=== PATIENT | female | born 1945 | race Caucasian/White ===

== ENCOUNTER 2019-10-13 10:02 | Inpatient (IN) ==
[2019-10-13] MEDS ORDERED: METHOCARBAMOL 1,000 MG/10 ML VIAL IV ONE ×2 (10:26→17:54)
--- NOTE | 2019-10-13 10:35 | Emergency Department Note ---
Fall HPI General Chief Complaint: Fall Stated Complaint: fall Time Seen by Provider: 10/13/19 10:04 Mode of arrival: ambulatory Limitations: physical limitation History of Present Illness HPI Narrative: Narrative: This pleasant 74-year-old female was transferred by EMS after she was unable to get up after a fall this morning at around 9:30 AM. Her [id number], Ching and was in the home at the time and did witness this. Neit her the [id number] nor the patient believe that she hit her head or had any loss of consciousness. Fall was caused by a dog that went by and bumped against her, and with some slippers on a hardwood floor slipped and she ended up going down onto her hips. Her back was against some cupboards. She had immediate pain that was in the low midline area. Her pain was 10 out of 10. EMS vitals were 130/80 and pulse of 61. She has no prior history of compression fractures. Pain has been stabbing in nature with spasm-like muscles in the low back area. Is made worse by movement or just on its own. Related Data Home Medications Medication Instructions Recorded Confirmed acetaminophen [Tylenol Extra 500 mg PO TIDP PRN 10/13/19 10/13/19 Strength] furosemide [Lasix] 80 mg PO DAILY 10/13/19 10/13/19 naproxen sodium [Aleve] 220 mg PO Q8H PRN 10/13/19 10/13/19 pentoxifylline 400 mg PO TID 10/13/19 10/13/19 potassium chloride 20 meq PO DAILY 10/13/19 10/13/19 Allergies Allergy/AdvReac Type Severity Reaction Status Date / Time Sulfa (Sulfonamide Allergy Severe Hives Verified 10/13/19 10:08 Antibiotics) Review of Systems ROS ROS Narrative: Narrative: No fevers chills sweats except with the pain this morning. No blurry vision or double vision that is new. She has macular degeneration No chest pain No cough or shortness of breath. Her inhalers were stopped not long ago due to ruling out asthma. She has never been a smoker. No history of COPD. 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 No abdominal pain, nausea, vomiting, diarrhea, constipation, hematochezia No dysuria No headaches or dizziness. Has had sleep study because of insomnia; no GRACE found. No anxiety or depression. [facility] Narrative Patient History Narrative: Narrative: Medical/Surgical/Family History All Active Problems (Updated 10/13/19 @ 17:29 by Farzad Hawkins DO) Fall from slip, trip, or stumble (Acute) Closed compression fracture of lumbar vertebra (Acute) Lumbar strain (Acute) Lives alone (Acute) Chronic insomnia (Chronic) History of appendectomy (Acute) Peripheral arterial disease (Chronic) Aortic aneurysm (Acute) Fluid retention (Chronic) Paralysis, diaphragm (Chronic) Macular degeneration (Chronic) Medical History (Updated 10/13/19 @ 17:29 by Farzad Hawkins DO) Aortic aneurysm (Acute) Patient uncertain if his thoracic or abdominal (10/13/2019) Chronic insomnia (Chronic) Fluid retention (Chronic) On chronic furosemide 80 mg plus potassium (10/13/19) Macular degeneration (Chronic) Paralysis, diaphragm (Chronic) Right side Peripheral arterial disease (Chronic) No stents yet; on pentoxifylline, recently increased to 3 times daily (10/13/2019). Managed by Dr. Winkler, estimator and drafter supervisor, [facility]. Surgical History (Updated 10/13/19 @ 10:31 by Farzad Hawkins DO) History of appendectomy (Acute) History of bilateral cataract extraction (Acute) History of total replacement of both hip joints (Acute) Family History (Updated 10/13/19 @ 10:32 by Farzad Hawkins DO) Heart disease Father Mother Myocardial infarction Father Social History Smoking Status: Never smoker Alcohol Intake Frequency: a few times a month Substance Use: does not use Exam Narrative Narrative: Narrative: General Limitations: physical limitation General appearance: alert, grimacing (Intermittently with some spasms of pain.) and nontoxic Head Head: atraumatic and normocephalic Eye Eye: Present normal appearance, PERRL and EOMI ENT ENT: Present normal oropharynx and mucous membranes moist Neck Neck: Present trachea midline; Absent lymphadenopathy and thyromegaly Chest Chest: Present symmetric chest wall rise Respiratory Respiratory: Present normal lung sounds bilaterally (Except for very fine trace crackles in the left base.); Absent respiratory distress, rales/crackles, wheezes, stridor, accessory muscle use and prolonged expiratory phase Cardiovascular Cardiovascular: Present regular rate, normal rhythm and other (Occasional PVCs or other early beats with irregularity.); Absent systolic murmur and diastolic murmur Adbominal Abdominal: Present soft; Absent distention, tenderness, guarding, rebound, rigidity, organomegaly and mass Extremities Extremities: Absent pedal edema, pretibial edema, calf tenderness and cyanosis Back Back: Present spinous process tenderness (Approximately L5 spinous process seems to be fairly tender to her. None on the sides of this level. No pain at the sacroiliac joints or sacrum specifically.); Absent CVA tenderness (R) and CVA tenderness (L) Neurological Neurological: Present alert and oriented X3 Psychiatric Psychiatric: Present normal affect, polite and pleasant; Absent depressed, agitated, anxious and poor eye contact Skin Skin: Present warm and dry; Absent cyanosis and pallor Course Vital Signs Vital signs: Vital Signs Temperature 97.2 F 10/13/19 10:03 Pulse Rate 56 L 10/13/19 10:03 Respiratory Rate 16 10/13/19 10:03 Blood Pressure 169/118 10/13/19 10:03 Pulse Oximetry (%) 93 10/13/19 10:03 Temperature 97.2 F 10/13/19 10:03 Pulse Rate 80 10/13/19 16:19 Respiratory Rate 16 10/13/19 10:03 Blood Pressure 138/77 10/13/19 16:19 Pulse Oximetry (%) 96 10/13/19 16:19 [facility] Narrative Medical decision making narrative: Narrative: 10:06 AM - interviewed and examined. Significant pain at about L5 after a fall; no loss of consciousness. Is on pentoxifylline but no other blood thinners. Aspirin was stopped 2 weeks ago due to significant bruising.. Has a history of hip replacement. History of several medical problems. We will do x-rays. We will put in an IV to be able to do methocarbamol IV. 12:20 PM - I did not see any abnormalities in the hips. There is significant air in multiple loops but no overly dilated. Lumbar x-ray with suggestion of posterior decrease in the height at L5 and fears to have compression of L1. 12:40 PM - I spoke with the radiologist who points out new compression fracture since a comparison CT of several years ago and L1 and may be slight and L2 but he does not feel that this is likely an L5. 1:01 PM - spoke with patient who confirms the pain is still at the lower aspect rather than L1. Because the pain is quite severe and incredible even inhibiting her ability to get up to go to the bathroom but some lessened with the pain medicine, there is a question if she could even be able to return home. She does not have anybody to stay with her. Because of the severity of the pain will go ahead with a CT scan. I spoke with career resource technician who confirms a CT without contrast should be adequate. 1:56 PM - if she does not move she does not have much pain but if she moves she has quite a bit of pain. Additional pain medication given and we will try to ambulate her. With second dose of pain medication she still is completely unable to move around and unable to care for herself. I spoke with the hospitalist, Dr. Corbin Kinsey, who will see patient and admit for management short-term and look for long-term or intermediate options. Discharge Plan Patient/Caregiver Discharge Instructions Pt seen by CABLE WAY OPERATOR/PA only: No Clinical Impression: Fall from slip, trip, or stumble, Closed compression fracture of lumbar vertebra, Lumbar strain, Lives alone Patient Disposition: Xfer As Outpt/Obs ([facility]) Follow up with: Ching Garza ARNP [Primary Care Provider] - Prescriptions: No Action furosemide [Lasix] 40 mg Tablet 80 mg PO DAILY RF: 0 pentoxifylline 400 mg Tablet Extended Release 400 mg PO TID RF: 0 potassium chloride 20 mEq Tablet Extended Release 20 meq PO DAILY RF: 0 acetaminophen [Tylenol Extra Strength] 500 mg Tablet 500 mg PO TIDP PRN (Reason: Pain) RF: 0 naproxen sodium [Aleve] 220 mg Capsule 220 mg PO Q8H PRN (Reason: Pain) RF: 0
[2019-10-13] MEDS ORDERED: ONDANSETRON 4 MG/2 ML VIAL IV ONE (11:54)
[2019-10-13] MEDS: HYDROmorphone 0.5 MG/0.5 ML SYRINGE IV PRN ×3 (12:07→16:26)
--- NOTE | 2019-10-13 14:45 | Cat Scan Report ---
CLINICAL INFORMATION: , Trauma COMPARISON: Plain films 10/13/2019 TECHNIQUE: 0.625 mm helical slices were obtained from the mid T12 through mid S2 vertebral bodies. Following reconstruction, 2.5 mm coronal, sagittal, and axial reformations (angle to the disc spaces) were processed. Exam was reviewed at bone and soft tissue windows.The exam was performed using radiation dose optimization techniques including, but not limited to, automated exposure control, adjustment of the mA and/or kV according to patient size and use of iterative reconstruction technique. FINDINGS: Sagittal and coronal reformatted images show the lumbar spine is anatomically aligned. A moderately comminuted acute compression fracture of the superior one third of the L1 vertebral bodies appreciated. Posterior fragment is displaced 4 mm resulting in slight impingement of the anterior thecal sac. No other fractures identified. Soft tissues are significant for multiple small stones in the gallbladder. No other soft tissue abnormality. At T12-L1, there is minimal broad disc protrusion left-sided asymmetry. At L1-2, moderate broad disc protrusion mildly impinges the right anterior thecal sac and slightly narrows the right lateral recess. At L2-3, mild broad disc protrusion with right-sided asymmetry is appreciated. At L3-4, minimal broad disc protrusion is appreciated. At L4-5, moderate broad disc protrusion left-sided asymmetry and facet arthropathy result in mild central canal and mild left lateral recess narrowing At L5-S1, mild broad disc protrusion mildly impinges the thecal sac. IMPRESSION: 1. Mild acute L1 compression fracture involving the superior endplate with approximately 10% loss of vertebral height. There is 4 mm displacement posterior fragment into the thecal sac 2. Mild degenerative change - as described 3. Cholelithiasis Interpreted and Authenticated by: Won Lopez 10/13/19
--- NOTE | 2019-10-13 15:17 | XRay Report ---
CLINICAL INFORMATION: Fall/ Low back pain COMPARISON: None. FINDINGS: Mild compression fracture of the superior L1 endplate with approximately 10% loss of vertebral height appreciated. There is mild biconcavity of the lumbar endplates suggesting osteopenia. The lumbar spine is normal in curvature and alignment. Mild L5-S1 degenerative disc disease noted. No soft tissue normality. IMPRESSION: Mild acute fracture of the superior L1 endplate 10% loss of vertebral height Mild L5-S1 degenerative disc facet disease Interpreted and Authenticated by: Won Lopez 10/13/19
--- NOTE | 2019-10-13 15:19 | XRay Report ---
CLINICAL INFORMATION: Fall/ Low back pain COMPARISON: 03/20/2013 FINDINGS: Bilateral hip prostheses are in stable position. The left hip prostheses is anatomically aligned. The acetabular component of the right hip prostheses shows chest lateral canting. There are three additional screws through the right supra-acetabular regions.. No acute fracture appreciated. SI joints show only minimal degenerative change. Soft tissues normal. IMPRESSION: No fracture or other acute posttraumatic change. Interpreted and Authenticated by: Won Lopez 10/13/19
--- NOTE | 2019-10-13 17:12 | Internal Med History&Physical ---
HPI History of Present Illness Patient information: Note initiated : 10/13/19 at 5:05 pm Service Date, if different from initiated Date: [] Patient: Iza Chapa a 74 y/o F admitted on for fall. Chief Complaint: [] History of present illness: Ms. Chapa is a 74 year old F Who presents to the ED with low back pain after fall at home. Patient lives alone but her sister was visiting and while her sister was visiting her dog bumped her and she fell straight to the floor on her buttocks resulting in low back pain. Did not hit her head and no loss of consciousness. She been otherwise healthy and no recent issues. In the ED she was evaluated and found to have a acute L1 compression fracture. Because of the acute pain she is unable to ambulate and provide care for herself at home by herself, thus admission was requested. She denies any numbness tingling in her legs. She denies any bowel or bladder incontinence. Pain is localized to the low back and does not radiate. Review of Systems: Pertinent positives as above. Denies headach e/fever/chills/nausea/vomiting/chest or abdominal pain/cough/dyspnea/diarrhea. Remaining 10 point review of system reviewed negative PFSH PFSH All Active Problems (Updated 10/13/19 @ 10:37 by Farzad Hawkins DO) Chronic insomnia (Chronic) History of appendectomy (Acute) Peripheral arterial disease (Chronic) Aortic aneurysm (Acute) Fluid retention (Chronic) Paralysis, diaphragm (Chronic) Macular degeneration (Chronic) Medical History (Updated 10/13/19 @ 10:37 by Farzad Hawkins DO) Aortic aneurysm (Acute) Patient uncertain if his thoracic or abdominal (10/13/2019) Chronic insomnia (Chronic) Fluid retention (Chronic) On chronic furosemide 80 mg plus potassium (10/13/19) Macular degeneration (Chronic) Paralysis, diaphragm (Chronic) Right side Peripheral arterial disease (Chronic) No stents yet; on pentoxifylline, recently increased to 3 times daily (10/13/2019). Managed by Dr. Winkler, electrical journeyman, [facility]. Surgical History (Updated 10/13/19 @ 10:31 by Farzad Hawkins DO) History of appendectomy (Acute) History of bilateral cataract extraction (Acute) History of total replacement of both hip joints (Acute) Family History (Updated 10/13/19 @ 10:32 by Farzad Hawkins DO) Father Heart disease Myocardial infarction Mother Heart disease Social History smoking status: Never smoker alcohol intake frequency: a few times a month substance use type: does not use MEDS/ALLERGIES Home Medications and Allergies Home Medications Medication Instructions Recorded Confirmed Type furosemide [Lasix] 40 mg PO BID 10/13/19 10/13/19 History pentoxifylline 400 mg PO TID 10/13/19 10/13/19 History potassium chloride 20 meq PO DAILY 10/13/19 10/13/19 History Allergies Allergy/AdvReac Type Severity Reaction Status Date / Time Sulfa (Sulfonamide Allergy Severe Hives Verified 10/13/19 10:08 Antibiotics) EXAM Constitutional Vitals: Temp Pulse Resp BP Pulse Ox 97.2 F 80 16 138/77 96 10/13/19 10:03 10/13/19 16:19 10/13/19 10:03 10/13/19 16:19 10/13/19 16:19 Exam: General: Alert, Awake, No acute Distress Eyes/N/T: EOMI, PERRL, Head/Neck: neck supple, normocephalic atraumatic CV: RRR, No murmurs, normal s1/s2 Pulm: Clear b/l, no wheezing/rhonchi/rales Abd: soft, nontender, +BS x4 Ext: no clubbing/cyanosis/edema Neuro: Alert, no focal deficits, moves all extremities, CN 2-12 grossly intact, sensations intact b/l upper/lower Skin: warm/dry A/P Narrative A/P Narrative: A: *Acute L1 Compression Fx w/Intractable Pain and mild impingement on thecal sac, no neurological symptoms: *Debility: 2/2 above *h/o Asthma: *GRACE: Currently being evaluated for CPAP *PVD: on Pentoxifylline and ASA *h/o of PAF, being treated with ASA *Glaucoma: * P: -NSAIDS, robaxin, prn norco -lidoderm patch -LSO brace -pt/ot -home med update -CM for placement needs - -ppx: lovenox full code Time Spent With Patient Time: Total time spent is greater than 50% in coordination of care (as documented) at patient's floor/unit and/or counseling patient:
[2019-10-13] MEDS ORDERED: MAGNESIUM SULFATE 2 GM/50 ML BAG IV PRN (17:54)
[2019-10-13] MEDS ORDERED: LACTULOSE 20 GM/30 ML ORAL.SOL PO PRN (17:54)
[2019-10-13] MEDS ORDERED: ACETAMINOPHEN 325 MG TABLET PO PRN (17:54)
[2019-10-13] MEDS ORDERED: IPRATROPIUM/ALBUTEROL 3 ML AMPUL.NEB NEB PRN (17:54)
[2019-10-13] MEDS ORDERED: POTASSIUM CHLORIDE 20 MEQ TABLET PO PRN ×2 (17:54)
[2019-10-13] MEDS ORDERED: 0.9 % SODIUM CHLORIDE 1,000 ML IV SCH (17:54)
[2019-10-13] MEDS ORDERED: POTASSIUM CHLORIDE 40 MEQ in DEXTROSE 5% IN WATER 500 ML IV PRN (17:54)
[2019-10-13] MEDS ORDERED: SENNOSIDES 1 TABLET PO PRN (17:54)
[2019-10-13] MEDS ORDERED: POLYETHYLENE GLYCOL 3350 17 GM PACKET PO PRN (17:54)
[2019-10-13] MEDS: KETOROLAC 15 MG/ML VIAL IV SCH (18:49)
[2019-10-13] MEDS: 0.9 % SODIUM CHLORIDE 10 ML SYRINGE IV SCH (20:59)
[2019-10-13] MEDS: HYDROcodone/APAP 5/325MG TABLET PO PRN (22:01)
[2019-10-13] MEDS: PENTOXIFYLLINE 400 MG TABLET PO SCH (22:01)
[2019-10-13] MEDS: DOCUSATE SODIUM 100 MG CAPSULE PO SCH (22:01)
[2019-10-14] MEDS: HYDROcodone/APAP 5/325MG TABLET PO PRN ×3 (02:30→14:19)
[2019-10-14] MEDS: 0.9 % SODIUM CHLORIDE 10 ML SYRINGE IV SCH ×3 (05:32→20:34)
[2019-10-14] MEDS: KETOROLAC 15 MG/ML VIAL IV SCH ×2 (05:32)
--- NOTE | 2019-10-14 07:48 | Internal Med Progress Note ---
SUBJECTIVE Subjective Patient information: Note initiated : 10/14/19 at 7:46 am Service Date, if different from initiated Date: [] Patient: Iza Chapa a 74 y/o F admitted on 10/13/19 for fall. Chief Complaint: [] Interval history: History of present illness: Ms. Chapa is a 74 year old F Who presents to the ED with low back pain after fall at home. Patient lives alone but her sister was visiting and while her sister was visiting her dog bumped her and she fell straight to the floor on her buttocks resulting in low back pain. Did not hit her head and no loss of consciousness. She been otherwise healthy and no recent issues. In the ED she was evaluated and found to have a acute L1 compression fracture. Because of the acute pain she is unable to ambulate and provide care for herself at home by herself, thus admission was requested. She denies any numbness tingling in her legs. She denies any bowel or bladder incontinence. Pain is localized to the low back and does not radiate. 9/6 Comfortable if he does not move. Lidocaine patch started this morning. Physical therapy to fit patient with LSO brace. No other pains or complaints. Review of Systems: denies headache/fever/chills/nausea/vomiting/chest or abdominal pain/coug h/dyspnea/diarrhea. Otherwise see above. Constitutional Vitals: Vital Signs Temp Pulse Resp BP Pulse Ox 98.1 F 62 16 113/61 96 10/14/19 03:35 10/14/19 03:35 10/14/19 03:35 10/14/19 03:35 10/14/19 03:35 Period Temp Pulse Resp BP Sys/Meza Pulse Ox Last 24 Hr 97.2 F-99.2 F 53-108 15-16 111-169/56-118 84-100 Intake and Output 10/13/19 10/14/19 10/14/19 21:59 05:59 13:59 Intake Total 600 1000 Output Total 800 175 Balance -023 255 7165 Weight 66.678 kg Intake & Output: Intake & Output 10/13/19 10/14/19 10/14/19 21:59 05:59 13:59 Intake Total 600 1000 Output Total 800 175 Balance -816 584 7373 Weight 66.678 kg Intake: IV 1000 Sodium Chloride 0.9% 1,000 ml @ 1000 125 mls/hr IV .Q8H [facility] Rx#: [id number] Oral 600 Output: Void Amount 800 175 Other: Urine Appearance Clear Urine Color Bright Yellow Exam: General: Alert, Awake, No acute Distress Eyes/N/T: EOMI, Head/Neck: neck supple, CV: RRR, No murmurs, Pulm: Clear b/l, no wheezing/rhonchi/rales Abd: soft, nontender, +BS x4 Ext: no clubbing/cyanosis/edema Neuro: Alert, no focal deficits, moves all extremities, Skin: warm/dry OBJ DATA Labs Meds: Medications Acetaminophen (Tylenol) 650 mg PO Q6HP PRN PRN Reason: PAIN/FEVER > 101 Hydrocodone Bitart/Acetaminophen ([place] 5/325mg) 1 tab PO Q4HP PRN PRN Reason: PAIN LEVEL 3-6 Last Admin: 10/14/19 06:39 Dose: 1 tab Documented by: Albuterol/Ipratropium (Duoneb) 3 ml NEB Q4HP PRN PRN Reason: Shortness Of Breath Docusate Sodium (Colace) 100 mg PO BID [facility] Last Admin: 10/13/19 22:01 Dose: 100 mg Documented by: Enoxaparin Sodium (Lovenox) 40 mg SQ DAILY [facility] Furosemide (Lasix) 40 mg PO BID [facility] Potassium Chloride 40 meq/ (Dextrose) 520 mls @ 130 mls/hr IV UD PRN PRN Reason: Potassium < 3 Magnesium Sulfate (Magnesium Sulfate) 2 gm in 50 mls @ 50 mls/hr IV UD PRN PRN Reason: Magnesium </= 1.6 Lactulose (Cephulac) 20 gm PO DAILYP PRN PRN Reason: Constipation Lidocaine (Lidoderm) 1 patch TOPICAL DAILY@1000 [facility] Methocarbamol (Robaxin) 750 mg IV Q6HP PRN PRN Reason: Muscle Spasm Morphine Sulfate (Morphine) 0 mg IV Q3HP PRN PRN Reason: Pain Ondansetron HCl (Zofran) 4 mg IV Q4HP PRN PRN Reason: Nausea And Vomiting Pentoxifylline (Trental) 400 mg PO TID [facility] Last Admin: 10/13/19 22:01 Dose: 400 mg Documented by: Polyethylene Glycol (Miralax) 17 gm PO DAILYP PRN PRN Reason: Constipation Potassium Chloride (Kdur) 20 meq PO QAMCC [facility] Potassium Chloride (Kdur) 40 meq PO UD PRN PRN Reason: Potssium is 3-3.5 Potassium Chloride (Kdur) 40 meq PO UD PRN PRN Reason: Potassium < 3 Senna (Senokot) 2 tab PO DAILYP PRN PRN Reason: Constipation Sodium Chloride (Saline Flush) 10 ml IV Q8 [facility] Last Admin: 10/14/19 05:32 Dose: 10 ml Documented by: A/P Narrative A/P Narrative: A: *Acute L1 Compression Fx w/Intractable Pain and mild impingement on thecal sac, no neurological symptoms: *Debility: 2/2 above *h/o Asthma: *GRACE: Currently being evaluated for CPAP *PVD: on Pentoxifylline and ASA *h/o of PAF, being treated with ASA *Glaucoma: * P: -NSAIDS, robaxin, prn norco -lidoderm patch -LSO brace -pt/ot -home med update -CM for placement to SNF - -ppx: lovenox full code Time Spent With Patient Time: Total time spent is greater than 50% in coordination of care (as documented) at patient's floor/unit and/or counseling patient: QUALITY VTE Deep Vein Thrombosis/Pulmonary Embolism Present on Admission: No
[2019-10-14 08:06] LABS: POC Blood Urea Nitrogen 16 mg/dl (8-23); POC CO2 22 mmol/L (22-30); POC Calcium, Ionized 1.12 mmol/L (1.16-1.32); POC Chloride 102 mmol/L (96-108); POC Creatinine 0.5 mg/dl (0.6-1.1); POC Glucose, Random 78 mg/dL (70-105); POC Potassium 4.3 mmol/L (3.3-5.1); POC Sodium 135 mmol/L (133-145)
[2019-10-14] MEDS: POTASSIUM CHLORIDE 20 MEQ TABLET PO SCH (08:31)
[2019-10-14] MEDS: DOCUSATE SODIUM 100 MG CAPSULE PO SCH ×2 (08:32→20:34)
[2019-10-14] MEDS: PENTOXIFYLLINE 400 MG TABLET PO SCH ×3 (08:32→20:35)
[2019-10-14] MEDS: ENOXAPARIN 40 MG/0.4 ML SYRINGE SQ SCH (08:32)
[2019-10-14] MEDS: LIDOCAINE PATCH TOPICAL SCH (09:21)
[2019-10-14] MEDS: METHOCARBAMOL 1,000 MG/10 ML VIAL IV PRN ×2 (12:27→20:35)
[2019-10-14] MEDS ORDERED: FUROSEMIDE 40 MG TABLET PO SCH (21:00)
[2019-10-15] MEDS: HYDROcodone/APAP 5/325MG TABLET PO PRN ×4 (01:19→21:10)
[2019-10-15] MEDS: METHOCARBAMOL 1,000 MG/10 ML VIAL IV PRN (02:51)
[2019-10-15] MEDS: 0.9 % SODIUM CHLORIDE 10 ML SYRINGE IV SCH ×3 (04:00→21:11)
[2019-10-15] MEDS: ONDANSETRON 4 MG/2 ML VIAL IV PRN ×2 (08:20→19:35)
--- NOTE | 2019-10-15 08:57 | Internal Med Progress Note ---
SUBJECTIVE Subjective Patient information: Note initiated : 10/15/19 at 8:55 am Service Date, if different from initiated Date: [] Patient: Iza Chapa a 74 y/o F admitted on 10/13/19 for fall. Chief Complaint: [] Interval history: History of present illness: Ms. Chapa is a 74 year old F Who presents to the ED with low back pain after fall at home. Patient lives alone but her sister was visiting and while her sister was visiting her dog bumped her and she fell straight to the floor on her buttocks resulting in low back pain. Did not hit her head and no loss of consciousness. She been otherwise healthy and no recent issues. In the ED she was evaluated and found to have a acute L1 compression fracture. Because of the acute pain she is unable to ambulate and provide care for herself at home by herself, thus admission was requested. She denies any numbness tingling in her legs. She denies any bowel or bladder incontinence. Pain is localized to the low back and does not radiate. 10/13 Comfortable if he does not move. Lidocaine patch started this morning. Physical therapy to fit patient with LSO brace. No other pains or complaints. 10/14 Patient states she had a rough night last night because of pain. She was in chair yesterday afternoon feels that bothered her back. She is on muscle relaxers oral narcotics with as needed IV and Lidoderm patch as well as a brace. Did have some nausea morning but no vomiting. Review of Systems: denies headache/fever/chills/nausea/vomiting/chest or abdominal pain/cough/dyspnea/diarrhea. Otherwise see above. Constitutional Vitals: Vital Signs Temp Pulse Resp BP Pulse Ox 98.1 F 73 20 126/70 95 10/15/19 06:53 10/15/19 06:53 10/15/19 06:53 10/15/19 06:53 10/15/19 06:53 Period Temp Pulse Resp BP Sys/Meza Pulse Ox Last 24 Hr 97.7 F-98.8 F 63-75 16-20 121-141/57-95 93-96 Intake and Output 10/14/19 10/15/19 10/15/19 21:59 05:59 13:59 Output Total 375 400 100 Balance -375 -400 -100 Weight 67.358 kg Intake & Output: Intake & Output 10/14/19 10/15/19 10/15/19 21:59 05:59 13:59 Output Total 375 400 100 Balance -375 -400 -100 Weight 67.358 kg Output: Urine Catheter Amount 100 Void Amount 375 300 100 Other: Meal Lunch Percent of Meal Consumed 100% Urine Appearance Clear Urine Color Bright Yellow Exam: General: Alert, Awake, No acute Distress Eyes/N/T: EOMI, Head/Neck: neck supple, CV: RRR, No murmurs, Pulm: Clear b/l, no wheezing/rhonchi/rales Abd: soft, nontender, +BS x4 Ext: no clubbing/cyanosis/edema Neuro: Alert, no focal deficits, moves all extremities, Skin: warm/dry OBJ DATA Labs Labs: Abnormal Lab Results 10/14/19 08:00 POC Hct 33.0 L POC Creatinine 0.5 L POC WB Ioniz Calcium 1.12 L Meds: Medications Acetaminophen (Tylenol) 650 mg PO Q6HP PRN PRN Reason: PAIN/FEVER > 101 Last Admin: 10/15/19 03:05 Dose: 650 mg Documented by: Hydrocodone Bitart/Acetaminophen ([place] 5/325mg) 1 tab PO Q4HP PRN PRN Reason: PAIN LEVEL 3-6 Last Admin: 10/15/19 01:19 Dose: 1 tab Documented by: Albuterol/Ipratropium (Duoneb) 3 ml NEB Q4HP PRN PRN Reason: Shortness Of Breath Docusate Sodium (Colace) 100 mg PO BID [facility] Last Admin: 10/14/19 20:34 Dose: 100 mg Documented by: Enoxaparin Sodium (Lovenox) 40 mg SQ DAILY [facility] Last Admin: 10/14/19 08:32 Dose: 40 mg Documented by: Furosemide (Lasix) 40 mg PO BID [facility] Last Admin: 10/14/19 20:34 Dose: Not Given Documented by: Potassium Chloride 40 meq/ (Dextrose) 520 mls @ 130 mls/hr IV UD PRN PRN Reason: Potassium < 3 Magnesium Sulfate (Magnesium Sulfate) 2 gm in 50 mls @ 50 mls/hr IV UD PRN PRN Reason: Magnesium </= 1.6 Lactulose (Cephulac) 20 gm PO DAILYP PRN PRN Reason: Constipation Lidocaine (Lidoderm) 1 patch TOPICAL DAILY@1000 [facility] Last Admin: 10/14/19 09:21 Dose: 1 patch Documented by: Methocarbamol (Robaxin) 750 mg IV Q6HP PRN PRN Reason: Muscle Spasm Last Admin: 10/15/19 02:51 Dose: 750 mg Documented by: Morphine Sulfate (Morphine) 0 mg IV Q3HP PRN PRN Reason: Pain Last Admin: 10/15/19 08:18 Dose: 3 mg Documented by: Ondansetron HCl (Zofran) 4 mg IV Q4HP PRN PRN Reason: Nausea And Vomiting Last Admin: 10/15/19 08:20 Dose: 4 mg Documented by: Pentoxifylline (Trental) 400 mg PO TID [facility] Last Admin: 10/14/19 20:35 Dose: 400 mg Documented by: Polyethylene Glycol (Miralax) 17 gm PO DAILYP PRN PRN Reason: Constipation Last Admin: 10/14/19 20:33 Dose: 17 gm Documented by: Potassium Chloride (Kdur) 20 meq PO QAMCC [facility] Last Admin: 10/14/19 08:31 Dose: 20 meq Documented by: Potassium Chloride (Kdur) 40 meq PO UD PRN PRN Reason: Potssium is 3-3.5 Potassium Chloride (Kdur) 40 meq PO UD PRN PRN Reason: Potassium < 3 Senna (Senokot) 2 tab PO DAILYP PRN PRN Reason: Constipation Sodium Chloride (Saline Flush) 10 ml IV Q8 [facility] Last Admin: 10/15/19 04:00 Dose: 10 ml Documented by: A/P Narrative A/P Narrative: A: *Acute L1 Compression Fx w/Intractable Pain and mild impingement on thecal sac, no neurological symptoms: *Debility: 2/2 above *h/o Asthma: *GRACE: Currently being evaluated for CPAP *PVD: on Pentoxifylline and ASA *h/o of PAF, being treated with ASA *Glaucoma: * P: -NSAIDS, robaxin, prn norco -lidoderm patch -LSO brace -pt/ot -home med update -CM for placement to SNF - -ppx: lovenox full code Time Spent With Patient Time: Total time spent is greater than 50% in coordination of care (as documented) at patient's floor/unit and/or counseling patient: [facility] VTE Deep Vein Thrombosis/Pulmonary Embolism Present on Admission: No
[2019-10-15] MEDS ORDERED: fentaNYL 12 MCG PATCH TOPICAL SCH (09:45)
[2019-10-15] MEDS: PENTOXIFYLLINE 400 MG TABLET PO SCH ×3 (10:56→21:10)
[2019-10-15] MEDS: DOCUSATE SODIUM 100 MG CAPSULE PO SCH ×2 (10:56→21:10)
[2019-10-15] MEDS: POTASSIUM CHLORIDE 20 MEQ TABLET PO SCH (10:56)
[2019-10-15] MEDS: ENOXAPARIN 40 MG/0.4 ML SYRINGE SQ SCH (10:59)
[2019-10-15] MEDS: LIDOCAINE PATCH TOPICAL SCH (11:06)
--- NOTE | 2019-10-15 15:00 | Discharge Summary ---
Discharge Provider Provider Patient information: Note initiated : 10/15/19 at 2:58 pm Service Date, if different from initiated Date: [] Patient: Iza Chapa 74 y/o F admitted on 10/13/19 for fall. Chief Complaint: [] Date of admission: 10/13/19 17:40 Discharge date: 10/16/19 Primary care physician: Ching Garza Consults: 10/13/19 Consult to Physician [CONS] Stat Comment: Consulting Provider: Corbin Kinsey Reason For Exam: Physician to Consult Discharge Meds Discharge Medications Home Medications acetaminophen [Tylenol Extra Strength] 500 mg PO TIDP PRN 10/13/19 [History Confirmed 10/16/19 Last Taken Unknown] albuterol sulfate 2 puff INHALATION QID PRN 10/13/19 [History Confirmed 10/16/19 Last Taken Unknown] dorzolamide-timolol (PF) 1 drp OPHTHALMIC (EYE) BID 10/13/19 [History Confirmed 10/16/19 Last Taken 10/13/19 1 gtt] furosemide [Lasix] 40 mg PO DAILY 10/13/19 [History Confirmed 10/16/19 Last Taken 10/13/19 40 mg] naproxen sodium [Aleve] 220 mg PO Q8H PRN 10/13/19 [History Confirmed 10/16/19 Last Taken 10/12/19 1 tab] pentoxifylline 400 mg PO TID 10/13/19 [History Confirmed 10/16/19 Last Taken 10/13/19 400 mg] potassium chloride 20 meq PO DAILY 10/13/19 [History Confirmed 10/16/19 Last Taken 10/13/19 20 mEq] docusate sodium 100 mg PO BID #60 cap 10/15/19 [Rx Last Taken Unknown] fentanyl 12 mcg TOPICAL Q72H #4 ea 10/15/19 [Rx Last Taken Unknown] hydrocodone-acetaminophen 1 tab PO Q4HP PRN #30 tab 10/15/19 [Rx Last Taken Unknown] methocarbamol 750 mg PO QID PRN #20 tab 10/15/19 [Rx Last Taken Unknown] COURSE Hospital Course Hospital course: History of present illness: Ms. Chapa is a 74 year old F Who presents to the ED with low back pain after fall at home. Patient lives alone but her sister was visiting and while her sister was visiting her dog bumped her and she fell straight to the floor on her buttocks resulting in low back pain. Did not hit her head and no loss of consciousness. She been otherwise healthy and no recent issues. In the ED she was evaluated and found to have a acute L1 compression fracture. Because of the acute pain she is unable to ambulate and provide care for herself at home by herself, thus admission was requested. She denies any numbness tingling in her legs. She denies any bowel or bladder incontinence. Pain is localized to the low back and does not radiate. 10/13 Comfortable if he does not move. Lidocaine patch started this morning. Physical therapy to fit patient with LSO brace. No other pains or complaints. 10/14 Patient states she had a rough night last night because of pain. She was in chair yesterday afternoon feels that bothered her back. She is on muscle relaxers oral narcotics with as needed IV and Lidoderm patch as well as a brace. Did have some nausea morning but no vomiting. 10/15 Started fentanyl patch yesterday which seems to be helping. Awaiting placement. A: *Acute L1 Compression Fx w/Intractable Pain and mild impingement on thecal sac, no neurological symptoms: *Debility: 2/2 above *h/o Asthma: *GRACE: Currently being evaluated for CPAP *PVD: on Pentoxifylline and ASA *h/o of PAF, being treated with ASA *Glaucoma: * Discharge diagnosis: Trip and fall with L1 compression fracture, debility Secondary discharge diagnosis: Obstructive sleep apnea peripheral vascular disease history of A. fib and glaucoma Time Spent with Patient Time attestation: Total time spent providing and/or coordinating discharge services: Time spent: Greater than 30 minutes EXAM Constitutional Vitals: Temp Pulse Resp BP Pulse Ox 98.4 F 64 16 136/69 91 10/15/19 11:40 10/15/19 11:40 10/15/19 11:40 10/15/19 11:40 10/15/19 11:40 Discharge Plan Patient/Caregiver Discharge Instructions Activity: increase activity as tolerated Diet: Cardiac Activity Restrictions/Additional Instructions: use LSO brace when ambulating. f/u with PT/OT Prescriptions: New hydrocodone-acetaminophen 5-325 mg Tablet 1 tab PO Q4HP PRN (Reason: Pain Level 3-6) Qty: 30 RF: 0 methocarbamol 750 mg Tablet 750 mg PO QID PRN (Reason: spasm) Qty: 20 RF: 0 docusate sodium 100 mg Capsule 100 mg PO BID Qty: 60 RF: 0 fentanyl 12 mcg/hr Patch 72 Hour 12 mcg topical Q72H Qty: 4 RF: 0 Continued furosemide [Lasix] 40 mg Tablet 40 mg PO DAILY RF: 0 pentoxifylline 400 mg Tablet Extended Release 400 mg PO TID RF: 0 potassium chloride 20 mEq Tablet Extended Release 20 meq PO DAILY RF: 0 acetaminophen [Tylenol Extra Strength] 500 mg Tablet 500 mg PO TIDP PRN (Reason: Pain) RF: 0 naproxen sodium [Aleve] 220 mg Capsule 220 mg PO Q8H PRN (Reason: Pain) RF: 0 albuterol sulfate 90 mcg/actuation Hfa Aerosol Inhaler 2 puff INHALATION QID PRN (Reason: Shortness Of Breath) RF: 0 dorzolamide-timolol (PF) 2-0.5 % Drops 1 drp OPHTHALMIC (EYE) BID RF: 0 Follow Up Plan Follow up with: Ching Garza ARNP [Primary Care Provider] - Patient Disposition: Xfer SNF Rehab Potential: Fair I certify that the patient requires SNF services: Yes Overall status at discharge: patient is not back to baseline Discharge Orders: Discharge Order (Routine); Ordered 10/16/19 Ordered By: Corbin Kinsey REPLACED BY [facility] VTE Deep Vein Thrombosis/Pulmonary Embolism Present on Admission: No
[2019-10-15] MEDS: METHOCARBAMOL 750 MG TABLET PO SCH ×2 (15:32→21:10)
[2019-10-16] MEDS: HYDROcodone/APAP 5/325MG TABLET PO PRN ×3 (02:23→10:48)
[2019-10-16] MEDS: 0.9 % SODIUM CHLORIDE 10 ML SYRINGE IV SCH ×2 (06:35→14:09)
[2019-10-16] MEDS: PENTOXIFYLLINE 400 MG TABLET PO SCH ×2 (10:20→14:09)
[2019-10-16] MEDS: POTASSIUM CHLORIDE 20 MEQ TABLET PO SCH (10:20)
[2019-10-16] MEDS: ENOXAPARIN 40 MG/0.4 ML SYRINGE SQ SCH (10:20)
[2019-10-16] MEDS: DOCUSATE SODIUM 100 MG CAPSULE PO SCH (10:20)
[2019-10-16] MEDS: METHOCARBAMOL 750 MG TABLET PO SCH ×2 (10:20→14:09)
[2019-10-16] MEDS: LIDOCAINE PATCH TOPICAL SCH (10:21)
[2019-10-16] MEDS ORDERED: FLU VACC QS2020-21(6MOS UP)/PF 60 MCG/0.5 ML SYRINGE IM ONE (13:22)
== END 2019-10-16 14:26 | DRG 552 ==
LOC: ED 10:02 → MEDSUR 17:40
PROVIDERS: ADMIT Internal Medicine; ATTEND Internal Medicine